=== PATIENT | male | born 1965 | race Caucasian/White ===

== ENCOUNTER 2019-04-21 09:15 | Emergency (ER) | payer MEDICAID ==
[~2019-04-21] VITALS: Ht 170.2 cm; Wt 77.0 kg
[2019-04-21 09:19] VITALS: Ht 170.2 cm; Wt 77.0 kg
[2019-04-21] MEDS ORDERED: SOD CHLORIDE 0.9% 500 ML IV STA (09:34)
--- NOTE | 2019-04-21 09:50 | ERD ---
ER Documentation Chief Complaint Chief Complaint Dizziness, n/v since am. HPI 53-year-old male no significant past medical history presents to the emergency with dizziness. He states that suddenly when he woke up this morning he noted a room spinning sensation with any head movement. He describes severe symptoms associated with nausea and vomiting that are completely alleviated when staying still. Yesterday he was fine. He denies any associated shortness of breath chest pain headache slurred speech or motor weakness. Normal gait. Patient did just recently returned from [place] but no significant or heavy drinking or s ubstance use. ROS All systems reviewed and are negative except as per history of present illness. Medications Home Meds Active Scripts Meclizine Hcl* (Meclizine Hcl*) 25 Mg Tablet, 25 MG PO Q8H PRN for DIZZINESS, #20 TAB Prov:RAFY PETTY MD 04/21/19 Allergies Allergies: Coded Allergies: No Known Allergy (Unverified , 04/21/19) FmHx Family History: No diabetes Physical Exam Vitals Vital Signs Date Temp Pulse Resp B/P (MAP) Pulse Ox O2 O2 Flow FiO2 Time Delivery Rate 04/21/19 97.4 40 18 145/65 100 09:19 (91) Physical Exam General: Well developed, well nourished, no acute distress Head: Normocephalic, atraumatic. Eyes: Pupils equally reactive, EOM intact ENT: Moist mucous membranes Neck: Supple, no lymphadenopathy Respiratory: Lungs clear bilaterally, no distress Cardiovascular: RRR, no murmurs, rubs, or gallops Abdominal: Soft, non-tender, non-distended, no peritoneal signs : Deferred MSK: No edema, no unilateral swelling, 5/5 strength Neurologic: Alert and oriented, moving all extremities, normal speech, no focal weakness, no cerebellar signs, slightly reproducible horizontal nystagmus, no vertical nystagmus. Normal rapid alternating movements. Skin: No rash Psych: Normal mood Result Diagram: 04/21/1994404/21/19944 Results 24 hrs Laboratory Tests Test 04/21/19 09:41 04/21/19 09:45 Bedside Glucose 133 mg/dL White Blood Count 6.1 10^3/ul Red Blood Count 4.40 10^6/ul Hemoglobin 13.7 g/dl Hematocrit 41.0 % Mean Corpuscular Volume 93.2 fl Mean Corpuscular Hemoglobin 31.1 pg Mean Corpuscular Hemoglobin Concent 33.4 g/dl Red Cell Distribution Width 12.1 % Platelet Count 188 10^3/UL Mean Platelet Volume 9.5 fl Immature Granulocytes % 0.200 % Neutrophils % 70.1 % Lymphocytes % 20.2 % Monocytes % 7.7 % Eosinophils % 1.3 % Basophils % 0.5 % Nucleated Red Blood Cells % 0.0 /100WBC Immature Granulocytes # 0.010 10^3/ul Neutrophils # 4.3 10^3/ul Lymphocytes # 1.2 10^3/ul Monocytes # 0.5 10^3/ul Eosinophils # 0.1 10^3/ul Basophils # 0.0 10^3/ul Nucleated Red Blood Cells # 0.0 10^3/ul Sodium Level 143 mmol/L Potassium Level 3.6 mmol/L Chloride Level 106 mmol/L Carbon Dioxide Level 29 mmol/L Anion Gap 8 Blood Urea Nitrogen 29 mg/dl Creatinine 1.13 mg/dl Est Glomerular Filtrat Rate mL/min > 60 mL/min Glucose Level 135 mg/dl Calcium Level 9.0 mg/dl Current Medications Medications Dose Sig/Evonne Start Time Status Last (Trade) Ordered Route PRN Stop Time Admin Dose Reason Admin Sodium 500 ml @ Q1H STAT 04/21/19 DC 04/21/19 Chloride 500 mls/hr IV 09:34 10:02 04/21/19 10:33 Lorazepam 0.5 mg ONCE ONCE 04/21/19 DC 04/21/19 (Ativan) IV 10:00 10:02 04/21/19 10:01 Meclizine 25 mg ONCE ONCE 04/21/19 DC 04/21/19 HCl PO 10:00 10:02 (Antivert) 04/21/19 10:01 Procedures/MDM EKG, MONITORS, & DIAGNOSTIC IMAGING: EKG: I reviewed and interpreted a 12-lead EKG. Rhythm: Sinus bradycardia ST Changes: No contiguous ST segment elevations T waves: No contiguous T wave inversions Impression: No evidence of acute cardiac ischemia LAB INTERPRETATION: I reviewed the laboratory testing and it shows no evidence of acute process MEDICAL DECISION MAKING: Patient's presentation is very consistent with likely peripheral vertigo. He has no risk factors for central vertigo. He has sudden reproducible symptoms that are alleviated with being still. The patient exhibits no signs or symptoms or risk factors for central process. I do not believe that CT imaging or MRI imaging would be necessary. I have a very low pretest probability for stroke or central process. Patient will benefit from symptom control. The patient does have sinus bradycardia but is healthy and exercises regularly. This is likely his normal resting heart rate. He is not having any hypotension or orthostatic symptoms that would suggest heart rate is causing his symptoms. ER COURSE: * Patient given IV fluids, Ativan, meclizine with a dramatic improvement of his symptoms. Laboratory testing is unrevealing. The patient is ambulatory. * At this point the patient can be safely discharged home. Expectant management for benign positional vertigo discussed. The patient can return for any worsening symptoms. CONSULTATION: None DISPOSITION PLAN: The patient does not have an identifiable emergent medical condition that warrants inpatient hospitalization at this time. The patient is deemed safe for discharge with outpatient follow-up. We discussed follow up with the patient's primary care doctor within 24 to 48 hours as needed. We also discussed return to the emergency room for worsening symptoms or worsening condition. Outpatient referral: None required Discharge Medications: Meclizine Departure Diagnosis: Primary Impression: BPV (benign positional vertigo) Laterality: unspecified laterality Qualified Codes: H81.10 - Benign paroxysmal vertigo, unspecified ear Condition: Stable RAFY PETTY MD Apr 21, 2019 09:50
[2019-04-21] MEDS ORDERED: LORAZEPAM 2 MG INJ IV ONE (10:00)
[2019-04-21] MEDS ORDERED: MECLIZINE 12.5 MG TAB PO ONE (10:00)
[2019-04-21] MEDS ORDERED: MECL-77 PO (11:01)
[2019-04-21 11:16] VITALS: BP 110/71; PULSE 41; RESP 16
== END 2019-04-21 11:30 | disposition home or self-care (01) ==
LOC: E/R 09:15
DX: H81.10 Benign paroxysmal vertigo, unspecified ear (principal)
CPT/HCPCS: 36415; 80048; 82962; 85025; 93005; 96374; J2060; J7040; Z7502; Z7610